=== PATIENT | male | born 1995 | race African-American/Black ===

== ENCOUNTER 2018-10-09 09:38 | Outpatient (CLI) | payer BC, OTHER ==
--- NOTE | 2018-10-09 11:40 | MRI ---
MRI OF THE LEFT KNEE WITHOUT CONTRAST: INDICATION: Left knee pain for 3 weeks. COMPARISON: None. FINDINGS: There is edema within the superolateral aspect of Hoffa's fat pad. There is mild superficial chondr osis involving the inferior aspect of the lateral patellar facet without a definite full-thickness ar ticular cartilage disruption. The extensor mechanism is intact. The medial and lateral menisci are intact. The ACL, PCL, MCL, and LCLC are intact. Articular cartilage of the femorotibial compartment appears relatively maintained. No popliteal cyst is identified. IMPRESSION: 1. Increased T2 signal within the superolateral aspect of Hoffa's fat pad can be seen with lateral p atellar tendon-lateral femoral condyle friction syndrome. 2. Mild superficial chondrosis of the lower and lateral aspect of the lateral patellar facet articul ar cartilage without evidence of a full-thickness fissure or defect. 3. The anterior cruciate ligament, posterior cruciate ligament, medial collateral ligament, and LCLC are intact. 4. The menisci are intact. POS: OFF
== END 2018-10-09 09:39 | disposition home or self-care (01) ==
LOC: SCSMRI 09:38
PROVIDERS: ATTEND Orthopaedic Surgery
DX: M25.562 Pain in left knee (principal); M22.2X2 Patellofemoral disorders, left knee